=== PATIENT | female | born 1990 | race Caucasian/White ===

== ENCOUNTER 2017-04-12 17:16 | Emergency (ER) | payer OTHER ==
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
[2017-04-12] MEDS ORDERED: LET GEL TOPICAL 1 EA SYR TP ONE ×2 (17:21→18:46)
[2017-04-12] MEDS ORDERED: HYDROmorphONE/DILAUDID 1 MG/ML SYR IVP ONE (17:50)
[2017-04-12] MEDS ORDERED: ONDANSETRON 4 MG/2 ML VIAL ONE (18:22)
[2017-04-12] MEDS ORDERED: ONDANSETRON 4 MG/2 ML VIAL IVP ONE (18:30)
[2017-04-12] MEDS ORDERED: HYDROCOD/APAP 5/325 PREPACK#6 BTL TAKEHOME ONE (20:13)
[2017-04-12] MEDS ORDERED: IBUPROFEN 600 MG TAB PO ONE (20:51)
[2017-04-12 21:05] VITALS: BP 127/69; PULSE 68; RESP 16; TEMP 98.2; O2SAT 95
== END 2017-04-12 21:05 | disposition home or self-care (01) ==
DX: S90.512A Abrasion, left ankle, initial encounter (principal); S60.812A Abrasion of left wrist, initial encounter; S70.312A Abrasion, left thigh, initial encounter; S40.212A Abrasion of left shoulder, initial encounter; S70.212A Abrasion, left hip, initial encounter; V19.49XA Pedal cycle driver injured in collision with other motor vehicles in traffic accident, initial encounter; Y92.410 Unspecified street and highway as the place of occurrence of the external cause
CPT/HCPCS: 96374; J1170; J2405